=== PATIENT | female | born 1995 | race Caucasian/White ===

== ENCOUNTER 2017-07-28 17:30 | Emergency (ER) | payer SELFPAY ==
[~2017-07-28] VITALS: Ht 165.1 cm; Wt 53.7 kg
[2017-07-28 18:25] LABS: HEMATOCRIT 40.4 % (36.0-46.0); MCH 29.2 PG (29.0-34.0); MCHC 32.9 G/DL (30.0-36.0); MCV 88.8 FL (83-99); MEAN PLAT.VOLUME 10.4 uM^3 (9.5-12.4); PLATELET COUNT 153 K/uL (156-360); RBC DIS.WIDTH-SD 38.8 % (39-53); RED BLOOD COUNT 4.55 M/uL (3.80-5.20); WHITE BLOOD COUNT 3.1 K/uL (4.1-10.2)
[2017-07-28 18:35] LABS: CHLORIDE 106 mEq/L (99-109); POTASSIUM 3.7 mEq/L (3.7-5.4); SODIUM 142 mEq/L (136-147)
[2017-07-28 18:37] LABS: GLUCOSE 92 mg/dL (70-99)
[2017-07-28 18:38] LABS: ANION GAP 14 MEQ/L (2-14)
[2017-07-28 18:41] LABS: GFR ESTIMATE (CALCULATED) > 59 mL/min/; UREA NITROGEN (BUN) 12 mg/dL (9-23)
[2017-07-28 18:59] LABS: INTERNAL CONTROL VALID? YES; MONOSPOT (MONONUCLEOSIS SEROL) NEGATIVE
[2017-07-28 20:10] LABS: ADD MIUA? YES; BILIRUBIN NEGATIVE; BLOOD MODERATE; COLOR YELLOW ((YELLOW)); GLUCOSE (STRIP) NEGATIVE; KETONES 5; LEUKOCYTES NEGATIVE; NITRITE NEGATIVE; PROTEIN (STRIP) NEGATIVE; SPECIFIC GRAVITY 1.018 (1.000-1.030); UROBILINOGEN 0.2 MG/DL (0.2-1.0)
[2017-07-28 20:14] LABS: BACTERIA NONE SEEN /HPF; EPITHELIAL CELLS RARE /HPF; HYALINE CASTS 0-5 /LPF; MUCUS TRACE /LPF; RED BLOOD CELLS 40-50 /HPF (0-5); UCUL ADDED? NO; WHITE BLOOD CELLS 0-5 /HPF (0-5)
[2017-07-28] MEDS ORDERED: VALTREX1000 MG PO (20:30)
[2017-07-28 20:57] VITALS: BP 120/89
== END 2017-07-28 20:41 | disposition home or self-care (01) ==
LOC: EME 17:30
DX: J35.8 Other chronic diseases of tonsils and adenoids (principal); R59.0 Localized enlarged lymph nodes; L98.8 Other specified disorders of the skin and subcutaneous tissue; R53.81 Other malaise; R19.7 Diarrhea, unspecified; D69.6 Thrombocytopenia, unspecified; Z11.3 Encounter for screening for infections with a predominantly sexual mode of transmission
CPT/HCPCS: 80048; 81003; 85027; 86308; 87254; 99281; 99284